=== PATIENT | male | born 1935 | race Asian ===

== ENCOUNTER 2017-05-30 11:04 | Emergency (ER) | payer OTHER ==
[~2017-05-30] VITALS: Ht 157.5 cm; Wt 60.0 kg
[2017-05-30 11:14] VITALS: Ht 157.5 cm; Wt 60.0 kg
--- NOTE | 2017-05-30 12:01 | ERD ---
ER Documentation Chief Complaint Chief Complaint SOB COMING TACHYPNEIC HPI This is an 81-year-old male with a past medical history of hypertension, hyperlipidemia, recent CVA with right-sided deficits and speech difficulties on a dysphasia diet, on Plavix, diabetes, non-Hodgkin's lymphoma, GERD, osteoporosis, constipation, depression, who is presenting with shortness of breath. The patient's wood club neck whipper at home has been his son. He actually did notnotice anything different from today. However, other family members who were seeing him for the first time as well as home physical therapy who had seen him previously felt that he was breathing faster than he should be. The physical therapist recommended that he come into the ER for evaluation, so the patient's son called [phone]. The patient's son does note that he has trouble swallowing water. He does well with prune juice and Ensure. He does well with his dysphagia diet otherwise. The patient does not have any complaints. He denies feeling sick recently. The patient has had no noticeable fever or chills. The patient not endorse headache or vision changes. The patient does not endorse neck or back pain. The patient denies lightheadedness or dizziness. The patient has had no chest pain, he does not feel short of breath. The patient denies nausea or vomiting. The patient denies abdominal pain or changes to bowel movements or urination. The patient does have loose stools and is incontinent of urine and stool. He wears a diaper and is changed by his son. The patient is on medications to loosen his stool, and this has been his baseline since the stroke. He has mild weakness and neglect on the right side with a right-sided facial droop at baseline. ROS All systems reviewed and are negative except as per history of present illness. Medications Home Meds Reported Medications Latanoprost (Latanoprost) 2.5 Ml Drops, 1 DROP BOTH EYES QHS, #1 BOTTLE 05/30/17 Pravastatin Sodium* (Pravastatin Sodium*) 40 Mg Tablet, 40 MG PO HS, TAB 05/30/17 Omeprazole* (Omeprazole*) 20 Mg Capsule.dr, 20 MG PO AC BREAKFAST, #30 CAP 05/30/17 Terazosin Hcl* (Terazosin Hcl*) 1 Mg Capsule, 1 MG PO HS, CAP 05/30/17 Melatonin (Melatonin) 10 Mg Capsule, 10 MG PO HS, CAP 05/30/17 Lactulose* (Lactulose*) 20 Gm/30 Ml Solution, 20 GM PO QID Y for CONSTIPATION, ML 05/30/17 Docusate Sodium* (Colace*) 100 Mg Capsule, 100 MG PO BID, #60 CAP 05/30/17 Alendronate Sodium* (Fosamax*) 70 Mg Tablet, 70 MG PO Q7D, #4 TAB 05/30/17 Clopidogrel Bisulfate (Clopidogrel) 75 Mg Tablet, 75 MG PO DAILY, #30 TAB 05/30/17 Sertraline Hcl* (Sertraline Hcl*) 25 Mg Tablet, 25 MG PO DAILY, #30 TAB 05/30/17 Allergies Allergies: Coded Allergies: No Known Allergy (Unverified , 05/30/17) PMhx/Soc Hx Neurological Disorder: Yes (cva) Hx Cardiac Disorders: Yes (HTN, HLD, DM) Hx Psychiatric Problems: Yes (Depression) Hx Miscellaneous Medical Probl: Yes (Constipation, NHL, osteoporosis) Hx Alcohol Use: No Hx Substance Use: No Hx Tobacco Use: No FmHx Family History: diabetes Physical Exam Vitals Vital Signs Date Time Temp Pulse Resp B/P Pulse Ox O2 Delivery O2 Flow Rate FiO2 05/30/17 11:14 98.9 80 20 119/69 100 Physical Exam Const: No apparent distress, well-developed, Thin appearing Head: Atraumatic Eyes: Normal Conjunctiva. Extraocular movements intact. ENT: Normal External Ears, Nose and Mouth. Neck: Full range of motion. ~ No meningismus. Resp: Clear to auscultation bilaterally, mild tachypnea Cardio: Regular rate and rhythm, no murmurs Abd: Soft, non tender, non distended. Normal bowel sounds Skin: No petechiae or rashes Back: No midline or flank tenderness Ext: No cyanosis, or edema Neur: Awake and alert. Unable to answer orientation questions. Mildly right sided facial droop. 4+/5 strength in right sided extremities. Partial left sided roland-neglect. Patient's RUE in a flexed state at baseline since CVA. Result Diagram: 05/30/17 1136 05/30/17 1136 Results 24 hrs Laboratory Tests Test 05/30/17 11:36 White Blood Count 6.210^3/ul Red Blood Count 3.9210^6/ul Hemoglobin 12.8g/dl Hematocrit 36.7% Mean Corpuscular Volume 93.6fl Mean Corpuscular Hemoglobin 32.7pg Mean Corpuscular Hemoglobin Concent 34.9g/dl Red Cell Distribution Width 13.2% Platelet Count 17296^3/UL Mean Platelet Volume 9.4fl Neutrophils % 73.5% Lymphocytes % 13.6% Monocytes % 10.2% Eosinophils % 1.5% Basophils % 0.6% Nucleated Red Blood Cells % 0.0/100WBC Neutrophils # 4.510^3/ul Lymphocytes # 0.810^3/ul Monocytes # 0.610^3/ul Eosinophils # 0.110^3/ul Basophils # 0.010^3/ul Nucleated Red Blood Cells # 0.010^3/ul Prothrombin Time 13.4Sec Prothrombin Time Ratio 1.0 INR International Normalized Ratio 1.02 Activated Partial Thromboplast Time 30.3Sec Sodium Level 137mmol/L Potassium Level 4.7mmol/L Chloride Level 106mmol/L Carbon Dioxide Level 22mmol/L Anion Gap 14 Blood Urea Nitrogen 18mg/dl Creatinine 1.13mg/dl Glucose Level 83mg/dl Calcium Level 9.1mg/dl Troponin I < 0.012ng/ml Procedures/MDM MDM The patient's presentation warrants further investigation. The patient is mildly tachypneic, but otherwise he appears comfortable. Aside from an increased respiratory rate, his vital signs are otherwise unremarkable and his physical exam is reassuring. A cardiopulmonary workup will be performed. The patient does not have findings consistent with acute coronary syndrome. The patient is not tachycardic. He is oxygenating 100% on room air. He does not endorse chest pain or pleuritic pain. The patient has no lower extremity edema or pain. I have low suspicion for pulmonary embolism. The patient does not have clinical findings of aspiration pneumonitis, but based on his history, this is a possibility. We will evaluate for signs of pneumonia, but I do not intend to treat at this time based on his reassuring exam. I do not suspect sepsis. If his x-ray or blood work reveals signs of an infectious etiology, I will consider treatment. LABS The patient's blood work was obtained and reviewed. The patient's CBC shows no leukocytosis or left shift. The patient is afebrile and does not appear systemically ill. I do not suspect a systemic infection. The patient is mildly anemic today. It is a normocytic anemia that does not need to be emergently treated today. The patient's platelet count is unremarkable. The patient's BMP shows no signs of metabolic or electrolyte abnormality. The patient has normal renal function testing. The patient's troponin is negative. EKG EKG read by me: Rate/Rhythm: Sinus rhythm at a rate of 73 with frequent PVCs Intervals: Normal [place]: Left shifted Poor R-wave progression. No ST or T-wave changes concerning for acute coronary syndrome. Impression: No evidence of ischemia IMAGING FINDINGS: The heart is within the upper limits of normal in size. The lungs are clear with no focal consolidations, pleural effusions, or pneumothorax. There are degenerative changes of the spine and shoulder joints. There is elevation of left hemidiaphragm. IMPRESSION: Elevation of the left hemidiaphragm of uncertain etiology. No focal consolidations. Electronically viewed and signed by Physician Vianey on 05/30/2017 12:56 TREATMENT/DISPOSITION The patient has a mild anemia that does not require emergent treatment. Otherwise, his blood work is reassuring. His troponin is negative and his EKG does not show findings of cardiac ischemia. I do not see evidence of pneumonia or pulmonary edema or pleural effusions on exam. I cannot definitively rule out an early aspiration pneumonitis, but the patient appears quite well. The patient should follow-up with his doctor regarding reevaluation of his dysphagia diet. I instructed the patient's son to avoid water or very thin liquids until reevaluated by his primary doctor. Patient tolerated Ensure at home without issue. This may be continued. At this time, I feel that the patient stable for discharge. He will need follow -up with his primary care physician in 1-3 days. He will be given strict precautions with which to return to the emergency department. Departure Diagnosis: Primary Impression: Tachypnea on examination Additional Impression: Normocytic anemia Condition: Stable HEATHER AGUILAR MD May 30, 2017 12:01 HEATHER AGUILAR MD May 30, 2017 12:01
[2017-05-30 12:08] LABS: BASOPHILS % 0.6 % (0.0-2.0); EOSINOPHILS # 0.1 10^3/ul (0.0-0.5); EOSINOPHILS % 1.5 % (0.0-7.0); HEMATOCRIT 36.7 % (42.0-52.0); HEMOGLOBIN 12.8 g/dl (14.0-18.0); LYMPHOCYTES # 0.8 10^3/ul (0.8-2.9); LYMPHOCYTES % 13.6 % (15.0-51.0); MEAN CORPUSCULAR HEMOGLOBIN 32.7 pg (29.0-33.0); MEAN CORPUSCULAR HGB CONC 34.9 g/dl (32.0-37.0); MEAN CORPUSCULAR VOLUME 93.6 fl (82.0-101.0); MEAN PLATELET VOLUME 9.4 fl (7.4-10.4); MONOCYTE # 0.6 10^3/ul (0.3-0.9); MONOCYTES % 10.2 % (0.0-11.0); NEUTROPHIL # 4.5 10^3/ul (1.6-7.5); NEUTROPHILS % 73.5 % (39.0-77.0); PLATELET COUNT 168 10^3/UL (140-415); RED BLOOD COUNT 3.92 10^6/ul (4.70-6.10); RED CELL DISTRIBUTION WIDTH 13.2 % (11.5-14.5); WHITE BLOOD COUNT 6.2 10^3/ul (4.8-10.8)
[2017-05-30 12:12] LABS: INR 1.02; PROTIME 13.4 Sec (12.2-14.2)
[2017-05-30 12:13] LABS: ANION GAP 14 (8-16); BLOOD UREA NITROGEN 18 mg/dl (7-20); CALCIUM 9.1 mg/dl (8.4-10.2); CARBON DIOXIDE 22 mmol/L (21-31); CHLORIDE 106 mmol/L (97-110); CREATININE 1.13 mg/dl (0.61-1.24); GLUCOSE 83 mg/dl (70-220); PARTIAL THROMBOPLASTIN TIME 30.3 Sec (25.0-35.0); POTASSIUM 4.7 mmol/L (3.5-5.1); SODIUM 137 mmol/L (135-144)
[2017-05-30 12:27] LABS: TROPONIN-I < 0.012 ng/ml (0.00-0.12)
[2017-05-30] MEDS ORDERED: SERT25TA83 PO (12:54)
[2017-05-30] MEDS ORDERED: DOCU-144 PO (12:55)
[2017-05-30] MEDS ORDERED: ALEN70TA30 PO (12:55)
[2017-05-30] MEDS ORDERED: CLOP75TA27 PO (12:55)
[2017-05-30] MEDS ORDERED: LACT20SO2 PO (12:56)
--- NOTE | 2017-05-30 12:56 | RADRPT ---
PROCEDURE: XR Chest. CLINICAL INDICATION: Shortness of breath. TECHNIQUE: Single frontal view of the chest was obtained COMPARISON: None FINDINGS: The heart is within the upper limits of normal in size. The lungs are clear with no focal consolidations, pleural effusions, or pneumothorax. There are degenerative changes of the spine and shoulder joints. There is elevation of left hemidiaphragm. IMPRESSION: 1. Elevation of the left hemidiaphragm of uncertain etiology. 2. No focal consolidations. RPTAT:AAJJ Physician Vianey Date Time Electronically viewed and signed by Bridgett Koehler Physician on 05/30/2017 12:56 QL/
[2017-05-30] MEDS ORDERED: TERA1CAP36 PO (12:57)
[2017-05-30] MEDS ORDERED: MELA10CA PO (12:57)
[2017-05-30] MEDS ORDERED: OMEP20CA16 PO (12:57)
[2017-05-30] MEDS ORDERED: PRAV40TA76 PO (12:58)
[2017-05-30] MEDS ORDERED: LATA2.5D2 BOTH EYES (12:58)
[2017-05-30 16:07] VITALS: BP 110/70; PULSE 77; RESP 20; TEMP 98.9
== END 2017-05-30 16:07 | disposition home or self-care (01) ==
LOC: E/R 11:04
DX: R06.82 Tachypnea, not elsewhere classified (principal); D64.9 Anemia, unspecified; I10 Essential (primary) hypertension; E11.9 Type 2 diabetes mellitus without complications
CPT/HCPCS: 36415; 71010; 80048; 84484; 85025; 85610; 85730; 93005